=== PATIENT | male | born 1945 | race Caucasian/White ===

== ENCOUNTER 2022-10-27 05:52 | Emergency (ER) | payer OTHER, MEDICARE ==
[2022-10-27 06:42] VITALS: RESP 18; TEMP 97.6; BMI 35.9
[2022-10-27 08:53] VITALS: BP 117/76; PULSE 66
== END 2022-10-27 09:23 | disposition home or self-care (01) ==
LOC: JER 05:52
DX: S42.212A Unspecified displaced fracture of surgical neck of left humerus, initial encounter for closed fracture (principal); M25.512 Pain in left shoulder; W01.0XXA Fall on same level from slipping, tripping and stumbling without subsequent striking against object, initial encounter
CPT/HCPCS: 70450-TC; 72125-TC; 73030-TC-LT-FY; 73060-TC-LT-FY; 99284-25

== ENCOUNTER 2024-12-18 13:45 | Observation (INO) | payer OTHER, MEDICARE ==
[2024-12-18 15:15] LABS: ABSOLUTE IMMATURE GRANULOCYTES 0.06 x10^3/uL (0.0-0.031); BASOPHILS # 0.08 x10^3/uL (0.01-0.08); EOSINOPHIL % 1.1 % (0.8-7.0); EOSINOPHILS # 0.15 x10^3/uL (0.04-0.54); MCHC 31.3 g/dl (32.3-36.5); MEAN CELL VOLUME 95.0 fl (79.0-92.2); MEAN PLT VOLUME 8.6 fl (9.4-12.4); MONOCYTE # 0.95 x10^3/uL (0.30-0.82); MONOCYTE % 7.1 % (5.3-12.2); RDW 13.7 % (12.2-16.6)
[2024-12-18 15:25] LABS: INR 1.21 (0.83-1.09); PROTHROMBIN TIME (PATIENT) 13.2 SEC (9.7-13.0)
[2024-12-18 15:28] LABS: ACTIVATED PTT 29.9 SECONDS (25.2-36.5)
[2024-12-18 15:36] LABS: CO2 27.0 mmol/L (21-32); GLUCOSE,RANDOM 122.0 mg/dL (74-106)
[2024-12-18 15:39] LABS: CREATININE 1.4 mg/dL (0.55-1.3); SGOT/AST 20.0 U/L (15-37); SGPT/ALT 30.0 U/L (13-61)
[2024-12-18 15:40] LABS: TOT PROT 6.8 g/dl (6.4-8.2)
[2024-12-18 15:42] LABS: ALK PHOS 113.0 U/L (45-117)
[2024-12-18 16:42] LABS: URINE COLOR RED
[2024-12-18 16:43] LABS: URINE APPEARANCE HAZY; URINE BILIRUBIN MODERATE (NEGATIVE); URINE GLUCOSE (UA) NEGATIVE (NEGATIVE); URINE PROTEIN TRACE (NEGATIVE)
[2024-12-18 16:44] LABS: URINE UROBILINOGEN 0.2 mg/dL (0.2-1.0)
[2024-12-18 19:08] VITALS: BMI 38.2
[2024-12-18] MEDS: SODIUM CHLORIDE 1,000 ML IV SCH ×2 (19:11)
[2024-12-19 08:25] LABS: MCHC 32.3 g/dl (32.3-36.5); MEAN CELL VOLUME 94.4 fl (79.0-92.2); MEAN PLT VOLUME 8.8 fl (9.4-12.4); RDW 13.6 % (12.2-16.6)
[2024-12-19] MEDS: CEFTRIAXONE 1 GM in DEXTROSE 5%-WATER - 50 ML IVPB SCH (09:06)
[2024-12-19] MEDS: FLUTICASONE/UMECLIDIN/VILANTER(200-62.5-25 TRELEGY ELLIPTA) INAHLER IH SCH (09:11)
[2024-12-19 09:17] LABS: CO2 26.0 mmol/L (21-32); GLUCOSE,RANDOM 120.0 mg/dL (74-106)
[2024-12-19 09:19] LABS: SGPT/ALT 23.0 U/L (13-61)
[2024-12-19 09:20] LABS: CREATININE 0.9 mg/dL (0.55-1.3); SGOT/AST 16.0 U/L (15-37)
[2024-12-19 09:21] LABS: TOT PROT 5.6 g/dl (6.4-8.2)
[2024-12-19 09:22] LABS: ALK PHOS 105.0 U/L (45-117)
[2024-12-19] MEDS ORDERED: ETOMIDATE 20 MG/10 ML VIAL IVPUSH ONE (13:40)
[2024-12-19] MEDS ORDERED: PROPOFOL 20 ML ONE (13:40)
[2024-12-19] MEDS: SODIUM CHLORIDE 1,000 ML IV SCH ×2 (13:48→18:57)
[2024-12-19] MEDS ORDERED: SUCCINYLCHOLINE CHLORIDE 200 MG/10 ML SYRINGE ONE (14:14)
[2024-12-19] MEDS: GENTAMICIN SO4 80 MG/2 ML VIAL IVPB ONE (14:35)
[2024-12-19] MEDS ORDERED: SUGAMMADEX SODIUM 200 MG/2 ML VIAL ONE (14:48)
[2024-12-19] MEDS ORDERED: ROCURONIUM BROMIDE 50 MG/5 ML SYRINGE ONE (14:48)
[2024-12-19] MEDS: TAMSULOSIN HCL 0.4 MG CAP PO ONE (15:12)
[2024-12-19] MEDS ORDERED: ONDANSETRON 4 MG/2 ML VIAL IVPUSH PRN (15:57)
[2024-12-19] MEDS ORDERED: LACTATED RINGERS SOLUTION 1,000 ML IV SCH (16:00)
[2024-12-19] MEDS ORDERED: ALBUTEROL SO4 2.5/IPRATROPIUM 0.5 INH SOL 3 ML VIAL.NEB. NEB ONE (16:00)
[2024-12-19] MEDS ORDERED: DEXAMETHASONE SOD PHOSPHATE 10 MG/1 ML VIAL ONE (16:01)
[2024-12-19] MEDS: DEXAMETHASONE SOD PHOSPHATE 4 MG/1 ML VIAL IVPUSH ONE (16:10)
[2024-12-19] MEDS: ALBUTEROL SO4 2.5/IPRATROPIUM 0.5 INH SOL 3 ML VIAL.NEB. NEB ONE (16:10)
[2024-12-19] MEDS ORDERED: HALOPERIDOL LACTATE 5 MG/ML ONE (16:14)
[2024-12-19] MEDS: HALOPERIDOL LACTATE 5 MG/ML IVPUSH ONE (16:24)
[2024-12-19] MEDS ORDERED: LIDOCAINE HCL 2% JELLY 11 ML TP ONE (16:42)
[2024-12-19] MEDS: GABAPENTIN 300 MG CAPSULE PO SCH (21:56)
[2024-12-19] MEDS ORDERED: GABAPENTIN 300 MG CAPSULE PO SCH (22:00)
[2024-12-20] MEDS: LEVOTHYROXINE NA 25 MCG TABLET (FP) PO SCH (06:08)
[2024-12-20] MEDS ORDERED: LEVOTHYROXINE NA 25 MCG TABLET (FP) PO SCH (07:00)
[2024-12-20] MEDS: CEFTRIAXONE 1 GM in DEXTROSE 5%-WATER - 50 ML IVPB SCH (09:30)
[2024-12-20] MEDS: FLUTICASONE/UMECLIDIN/VILANTER(200-62.5-25 TRELEGY ELLIPTA) INAHLER IH SCH (09:32)
[2024-12-20 10:26] LABS: ABSOLUTE IMMATURE GRANULOCYTES 0.15 x10^3/uL (0.0-0.031); BASOPHILS # 0.03 x10^3/uL (0.01-0.08); EOSINOPHIL % 0.0 % (0.8-7.0); EOSINOPHILS # 0.00 x10^3/uL (0.04-0.54); MCHC 31.1 g/dl (32.3-36.5); MEAN CELL VOLUME 95.7 fl (79.0-92.2); MEAN PLT VOLUME 9.2 fl (9.4-12.4); MONOCYTE # 0.90 x10^3/uL (0.30-0.82); MONOCYTE % 5.4 % (5.3-12.2); RDW 13.6 % (12.2-16.6)
[2024-12-20 11:12] LABS: CO2 27.0 mmol/L (21-32); GLUCOSE,RANDOM 128.0 mg/dL (74-106)
[2024-12-20 11:15] LABS: CREATININE 0.9 mg/dL (0.55-1.3); SGOT/AST 19.0 U/L (15-37); SGPT/ALT 23.0 U/L (13-61)
[2024-12-20 11:17] LABS: TOT PROT 6.1 g/dl (6.4-8.2)
[2024-12-20 11:18] LABS: ALK PHOS 105.0 U/L (45-117)
[2024-12-20] MEDS: MAGNESIUM HYDROX 2400MG/30ML ORAL SUSPENSION 30 ML CUP PO PRN (17:04)
[2024-12-20] MEDS: POLYETHYLENE GLYCOL (HEALTHYLAX) 3350 17 GM PACKET PO SCH (17:04)
[2024-12-20 17:26] VITALS: RESP 18
[2024-12-20] MEDS: SENNOSIDES 8.6MG TABLET (FP) PO SCH (21:13)
[2024-12-21 08:46] LABS: ABSOLUTE IMMATURE GRANULOCYTES 0.20 x10^3/uL (0.0-0.031); BASOPHILS # 0.07 x10^3/uL (0.01-0.08); EOSINOPHIL % 2.3 % (0.8-7.0); EOSINOPHILS # 0.35 x10^3/uL (0.04-0.54); MCHC 31.3 g/dl (32.3-36.5); MEAN CELL VOLUME 96.3 fl (79.0-92.2); MEAN PLT VOLUME 9.3 fl (9.4-12.4); MONOCYTE # 1.42 x10^3/uL (0.30-0.82); MONOCYTE % 9.2 % (5.3-12.2); RDW 13.6 % (12.2-16.6)
[2024-12-21 09:22] LABS: CO2 27.0 mmol/L (21-32); GLUCOSE,RANDOM 100.0 mg/dL (74-106)
[2024-12-21 09:25] LABS: CREATININE 0.9 mg/dL (0.55-1.3); SGOT/AST 15.0 U/L (15-37); SGPT/ALT 21.0 U/L (13-61)
[2024-12-21 09:26] LABS: TOT PROT 5.8 g/dl (6.4-8.2)
[2024-12-21 09:28] LABS: ALK PHOS 86.0 U/L (45-117)
[2024-12-21 11:38] VITALS: BP 125/79; PULSE 100; TEMP 98.2
== END 2024-12-21 11:10 | disposition home or self-care (01) ==
LOC: JER 13:45 → JERBED 13:56 → J8W 18:54
PROVIDERS: ADMIT Internal Medicine; ATTEND Registered Nurse
DX: R31.9 Hematuria, unspecified (principal); T83.091A Other mechanical complication of indwelling urethral catheter, initial encounter; N17.9 Acute kidney failure, unspecified; N40.1 Benign prostatic hyperplasia with lower urinary tract symptoms; R35.0 Frequency of micturition; R30.0 Dysuria; I10 Essential (primary) hypertension; E11.9 Type 2 diabetes mellitus without complications; E78.5 Hyperlipidemia, unspecified; I48.91 Unspecified atrial fibrillation; J44.9 Chronic obstructive pulmonary disease, unspecified; E03.9 Hypothyroidism, unspecified; E66.9 Obesity, unspecified; Z95.818 Presence of other cardiac implants and grafts; Z87.891 Personal history of nicotine dependence; Y84.6 Urinary catheterization as the cause of abnormal reaction of the patient, or of later complication, without mention of misadventure at the time of the procedure
CPT/HCPCS: 36415; 76775-TC; 76856-TC; 80048; 80053; 81003; 83735; 84100; 85025; 85027; 85610; 85730; 86850; 86900; 86901; 87086; 88300-TC; 88305-TC; 93005; 93010; 94640; 94760; 96365; 96366; 96375; 96376; 99285-25; G0378; J1100